=== PATIENT | female | born 2000 | race Caucasian/White ===

== ENCOUNTER 2020-04-27 10:24 | Outpatient (REF) | payer BC, SELFPAY ==
--- NOTE | 2020-04-27 09:45 | PAPFT_PTH ---
PATIENT: Karoline Jacobson LOC: [facility] U#:[id number] AGE/SX: 20/F ROOM: RE04/27/[address]: NATHALIE Rosario : 2000 BED: DIS: 04/27/2020 SPEC #: [id number] RECD: 04/27/20 12:51 STATUS: LENIN REPhoebe #: [id number] NASEEM: 04/27/20 09:[address]: Dana Olson DEPT: [facility] Cytology RECD BY: Jossy Wise ENTERED: 04/27/20 12:52 SP TYPE: PAPFT KELLY DR: NATHALIE Beard Tissues: 1 - CX/ENDOCX FOR PAP SMEARS Procedures: PAP THIN PREP/[facility] Screening Comments: [id number]
[2020-04-28 14:56] LABS: Chlamydia Result Negative (Negative); GC Result Negative (Negative)
== END 2020-04-27 10:44 ==
LOC: LBN 10:24
PROVIDERS: PCP Nurse Practitioner Family; Visit Provider Nurse Practitioner Family
DX: Z11.3 Encounter for screening for infections with a predominantly sexual mode of transmission (principal); Z12.4 Encounter for screening for malignant neoplasm of cervix; R87.612 Low grade squamous intraepithelial lesion on cytologic smear of cervix (LGSIL)
CPT/HCPCS: 87491; 87591; 88142

== ENCOUNTER 2021-09-03 11:20 | Outpatient (REF) | payer BC, SELFPAY ==
--- NOTE | 2021-09-03 10:30 | PAPFT_PTH ---
PATIENT: Karoline Jacobson LOC: [facility] U#:[id number] AGE/SX: 21/F ROOM: RE09/03/[address]: NATHALIE Rosario : 2000 BED: DIS: 09/03/2021 SPEC #: [id number] RECD: 09/03/21 12:43 STATUS: LENIN REPhoebe #: [id number] NASEEM: 09/03/21 10:[address]: Dana Olson DEPT: [facility] Cytology RECD BY: Jossy Wise ENTERED: 09/03/21 12:43 SP TYPE: PAPFT OT DR: NATHALIE Beard Tissues: 1 - CX/ENDOCX FOR PAP SMEARS Procedures: PAP THIN PREP/[facility] Screening Comments: [id number]
== END 2021-09-03 11:21 | disposition home or self-care (01) ==
LOC: LBN 11:20
PROVIDERS: PCP Nurse Practitioner Family; Visit Provider Nurse Practitioner Family
DX: Z12.4 Encounter for screening for malignant neoplasm of cervix (principal); Z87.42 Personal history of other diseases of the female genital tract
CPT/HCPCS: 88142

== ENCOUNTER 2022-09-10 12:13 | Outpatient (REF) | payer BC, SELFPAY ==
--- NOTE | 2022-09-10 10:45 | PAPFT_PTH ---
PATIENT: Karoline Jacobson LOC: [facility] U#:[id number] AGE/SX: 22/F ROOM: RE09/10/[address]: Milagros Patel NP : 2000 BED: DIS: 09/10/2022 SPEC #: [id number] RECD: 09/10/22 13:04 STATUS: LENIN REPhoebe #: [id number] NASEEM: 09/10/22 10:[address]: Milagros Patel NP DEPT: [facility] Cytology RECD BY: Jossy Wise ENTERED: 09/10/22 13:04 SP TYPE: PAPFT OTHR DR: Alesia Tolbert, NATHALIE Tissues: 1 - CX/ENDOCX FOR PAP SMEARS Procedures: PAP THIN PREP/[facility] Screening Comments: [id number]
== END 2022-09-10 12:14 | disposition home or self-care (01) ==
LOC: LBN 12:13
PROVIDERS: PCP Nurse Practitioner Family; Visit Provider Nurse Practitioner Women's Health
DX: Z12.4 Encounter for screening for malignant neoplasm of cervix (principal)
CPT/HCPCS: 88142

== ENCOUNTER 2022-10-09 16:37 | Outpatient (REF) | payer BC, SELFPAY ==
[2022-10-11 14:48] LABS: Chlamydia Result Negative (Negative); GC Result Negative (Negative)
== END 2022-10-09 16:38 | disposition home or self-care (01) ==
LOC: LBN 16:37
PROVIDERS: PCP Nurse Practitioner Family; Visit Provider Nurse Practitioner Women's Health
DX: Z11.3 Encounter for screening for infections with a predominantly sexual mode of transmission (principal)
CPT/HCPCS: 87491; 87591

== ENCOUNTER 2023-11-04 05:12 | Outpatient (CLI) | payer BC, SELFPAY ==
[2023-11-04 15:22] LABS: ESR 3 mm/hr (0-20)
[2023-11-04 15:23] LABS: Abs Immature Grans 0.02 10^3/uL (0.0-0.06); Absolute Basophil Count 0.07 10^3/uL (0.0-0.2); Absolute Eosinophil Count 0.22 10^3/uL (0.0-0.7); Absolute Lymphocyte Count 1.95 10^3/uL (1.2-3.4); Absolute Monocyte Count 0.39 10^3/uL (0.1-0.8); Absolute Neutrophil Count 3.59 10^3/uL (1.2-6.7); Basophils % 1.1 %; Eosinophils % 3.5 %; HGB 16.6 g/dL (11.2-15.7); Immature Grans % 0.3 %; Lymphocytes % 31.3 %; MCH 31.2 pg (27.0-33.0); MCHC 33.9 % (32.0-36.0); MCV 92 fL (80-95); Monocytes % 6.3 %; Neutrophils % 57.5 %; Platelet Count 249 10^3/uL (130-400); RBC 5.32 10^6/uL (3.93-5.22); RDW 12.1 % (11.7-14.6); RDW-SD 41.2 fL; WBC 6.24 10^3/uL (4.4-10.8)
[2023-11-04 16:26] LABS: ALT 25 U/L (14-59); AST 21 U/L (15-37); Albumin 4.2 g/dL (3.4-5.0); Alkaline Phosphatase 69 U/L (46-116); Anion Gap 7.5 mmol/L (3-11); BUN 14 mg/dL (7-18); Bilirubin, Total 0.2 mg/dL (0.2-1.0); CO2 29.5 mmol/L (21.0-32.0); CREATININE 0.9 mg/dL (0.55-1.02); Calcium 9.1 mg/dL (8.5-10.1); Chloride 104 mmol/L (98-107); Creatine Kinase 61 U/L (26-192); Estimated GFR 91.55 (mL/min/1.73m2); Glucose 104 mg/dL (74-106); Potassium 4.2 mmol/L (3.5-5.1); Sodium 141 mmol/L (136-145); TSH (W/Ref FT4) 2.26 uIU/mL (0.36-3.74); Total Protein 8.4 g/dL (6.4-8.2)
[2023-11-04 16:27] LABS: C-Reactive Protein < 0.50 mg/dL (<or=0.5)
[2023-11-04 16:49] LABS: Calculated LDL 74 mg/dL (<100); Cholesterol 191 mg/dL (<200); HDL Cholesterol 79 mg/dL (40-60); Triglyceride 193 mg/dL (<150)
[2023-11-05 10:56] LABS: Lyme Ab w Rflx to Lyme Confirm Negative (Negative)
[2023-11-07 14:59] LABS: Anaplasma phagocytophilum Negative (Negative); B. miyamotoi PCR Negative (Negative); Babesia divergens/MO-1 Negative (Negative); Babesia duncani Negative (Negative); Babesia microti Negative (Negative); Ehrlichia chaffeensis Negative (Negative); Ehrlichia ewingii/canis Negative (Negative); Ehrlichia muris eauclairensis Negative (Negative)
== END 2023-11-04 05:13 | disposition home or self-care (01) ==
LOC: LBO 05:12
PROVIDERS: PCP Nurse Practitioner Family; Visit Provider Nurse Practitioner Family
DX: Z13.220 Encounter for screening for lipoid disorders (principal); R50.9 Fever, unspecified; M79.18 Myalgia, other site
CPT/HCPCS: 36415; 80053; 80061; 82550; 85652; 87798; 84443; 85025; 86140; 86618

== ENCOUNTER 2024-05-05 14:39 | Outpatient (REF) | payer BC, SELFPAY ==
--- NOTE | 2024-05-05 14:30 | PAPFT_PTH ---
PATIENT: Karoline Jacobson LOC: [facility] U#:[id number] AGE/SX: 24/F ROOM: RE05/05/[address]: Milagros Patel NP : 2000 BED: DIS: 05/05/2024 SPEC #: [id number] RECD: 05/05/24 17:48 STATUS: LENIN REQ #: [id number] NSAEEM: 05/05/24 14:[address]: Jorge WAYNE,Milagros DEPT: [facility] Cytology RECD BY: Jossy Wise ENTERED: 05/05/24 17:49 SP TYPE: PAPFT OTHR DR: NATHALIE Beard Tissues: 1 - CX/ENDOCX FOR PAP SMEARS Procedures: PAP THIN PREP/[facility] Screening Comments: [id number] (CHLAMYDIA/GC)
[2024-05-06 12:35] LABS: Chlamydia Result Negative (Negative); GC Result Negative (Negative)
== END 2024-05-05 14:40 | disposition home or self-care (01) ==
LOC: LBN 14:39
PROVIDERS: PCP Nurse Practitioner Family; Visit Provider Nurse Practitioner Women's Health
DX: Z12.4 Encounter for screening for malignant neoplasm of cervix (principal); Z11.3 Encounter for screening for infections with a predominantly sexual mode of transmission
CPT/HCPCS: 87491; 87591; 88142